=== PATIENT | female | born 1950 | race Caucasian/White ===

== ENCOUNTER → 2016-07-09 | Outpatient (REF) | payer MEDICARE, MEDICAID ==
[2016-07-09 14:15] LABS: BASO % 0.7 % (0.0-1.0); EOS # 0.2 K/mm3 (0.0-0.50); EOS % 4.4 % (0.0-3.0); LARGE UNSTAINED CELL # 0.1 K/mm3 (0.0-0.4); LARGE UNSTAINED CELL % 2.7 % (0.0-4.0); LYMPH # 1.8 K/mm3 (1.5-4.5); LYMPH % 40.1 % (24.0-44.0); MEAN CORPUSCULAR HEMOGLOBIN 30.2 pg (27.0-33.0); MEAN CORPUSCULAR HGB CONC 32.8 g/dl (32.0-36.5); MEAN CORPUSCULAR VOLUME 92.1 fl (80.0-96.0); MONO # 0.3 K/mm3 (0.0-0.8); MONO % 7.8 % (0.0-5.0); NEUTROPHILS % 44.4 % (36.0-66.0); PLATELET COUNT, AUTOMATED 232 k/mm3 (150-450); RED CELL DISTRIBUTION WIDTH 11.9 % (11.5-14.5); WHITE BLOOD COUNT 4.4 K/mm3 (4.0-10.0)
[2016-07-09 14:37] LABS: ALBUMIN/GLOBULIN RATIO 1.29 (1.00-1.93); BILIRUBIN,TOTAL 0.4 MG/DL (0.2-1.0); CALCIUM LEVEL 9.9 MG/DL (8.8-10.2); CREATININE FOR GFR 1.64 MG/DL (0.55-1.02); GLOMERULAR FILTRATION RATE 33.4 (>45); POTASSIUM SERUM 4.5 MEQ/L (3.5-5.1); TOTAL PROTEIN 7.1 GM/DL (6.4-8.2)
[2016-07-09 15:26] LABS: THYROID PEROXIDASE ANTIBODY 366.4 U/ML (<60.0)
[2016-07-09 15:52] LABS: THYROXINE (T4) 8.3 UG/DL (4.5-12.0)
== END ==
LOC: M SFHCPLAZ 11:13
PROVIDERS: ATTEND Nurse Practitioner Family
DX: I10 Essential (primary) hypertension (principal); E78.5 Hyperlipidemia, unspecified

== ENCOUNTER → 2016-09-02 | Outpatient (CLI) | payer MEDICARE, MEDICAID ==
[2016-09-02 18:28] LABS: FREE T4 0.99 NG/DL (0.76-1.46)
== END ==
LOC: M WUC 10:52
PROVIDERS: ATTEND Nurse Practitioner Family
DX: E03.9 Hypothyroidism, unspecified (principal)

== ENCOUNTER → 2016-12-10 | Outpatient (CLI) | payer MEDICARE, MEDICAID ==
--- NOTE | 2016-12-10 22:55 | REP ---
Clinical: Bilateral shoulder pain. Technique: Internal rotation, external rotation, and Y view of the right and left shoulder. Findings: Bilateral moderate arthritic degenerative changes are appreciated (left greater than right). Both shoulders demonstrate cortical irregularity and subtle spurring at the acromioclavicular joint along with blunting and subtle heterogeneity to the glenoid rim. Left shoulder demonstrates inferior osteophyte at the glenoid. No acute fracture dislocation. Subacromial space normal bilaterally. Impression: Bilateral moderate arthritic degenerative changes (left greater than right). Signed by Phillip Mcgovern MD 12/10/2016 10:46 P
== END ==
LOC: M RAD 18:26
PROVIDERS: ATTEND Physician Assistant
DX: M19.011 Primary osteoarthritis, right shoulder (principal); M19.012 Primary osteoarthritis, left shoulder
CPT/HCPCS: 73030; G0463

== ENCOUNTER → 2017-01-11 | Outpatient (CLI) | payer MEDICARE, MEDICAID | LOC: M RAD 13:12 | PROVIDERS: ATTEND Nurse Practitioner Family | DX: M25.512 Pain in left shoulder (principal) ==

== ENCOUNTER → 2017-04-03 | Outpatient (CLI) | payer MEDICARE, MEDICAID ==
[~2017-04-03] MED LIST: BENA25CA4 PO; CENTTAB47 PO; DILT90TA PO; ELIQ5TAB PO; ESTR62CR PV; EZET10TA PO; FENO160T10 PO; HAIR1CAP2 PO; LEVO25TA5 PO; METO1TAB33 PO; NYST10CR TOP; NYSTOI TOP; POTA20TA6 PO; SPIR25TA2 PO; TRAM50TA2 PO; VALA1TAB2 PO; VALT1TAB PO; VITA10005 PO; VITA500T PO; VITMTA PO
--- NOTE | 2017-04-03 13:29 | REP ---
TWO VIEW CHEST: Comparison is 09/26/2015. There is no evidence of acute infiltrate. No pleural effusion is seen. The heart is normal in size. The mediastinal silhouette is unremarkable. The visualized osseous structures are intact. There is calcification of the thoracic aorta. There are degenerative changes of the spine. IMPRESSION: No acute pulmonary disease. Signed by Lamine Young MD 04/04/2017 07:22 P
== END ==
LOC: M RAD 11:59
PROVIDERS: ATTEND Physician Assistant
DX: Z01.812 Encounter for preprocedural laboratory examination (principal); S46.012D Strain of muscle(s) and tendon(s) of the rotator cuff of left shoulder, subsequent encounter; X58.XXXD Exposure to other specified factors, subsequent encounter
CPT/HCPCS: 71020; G0463

== ENCOUNTER → 2017-04-10 | Outpatient (REF) | payer MEDICARE ==
[~2017-04-10] MED LIST changes: -ESTR62CR PV; -NYST10CR TOP; -NYSTOI TOP; -TRAM50TA2 PO; -VITMTA PO
[2017-04-10 16:26] LABS: CALCIUM LEVEL 9.8 MG/DL (8.8-10.2); CREATININE FOR GFR 1.75 MG/DL (0.55-1.02); POTASSIUM SERUM 4.3 MEQ/L (3.5-5.1)
== END ==
LOC: M LABDRAWP 15:32
PROVIDERS: ATTEND Physician Assistant
DX: Z01.812 Encounter for preprocedural laboratory examination (principal); S46.012D Strain of muscle(s) and tendon(s) of the rotator cuff of left shoulder, subsequent encounter; X58.XXXD Exposure to other specified factors, subsequent encounter; Y93.9 Activity, unspecified; Y92.9 Unspecified place or not applicable; Y99.8 Other external cause status

== ENCOUNTER 2017-04-23 05:44 | Day surgery (SDC) | payer MEDICARE, MEDICAID ==
[~2017-04-23] VITALS: Ht 160 cm; Wt 95.3 kg
[2017-04-23] MEDS ORDERED: ROPIvacaine 0.5% 30 ML INJECTION (J2795) ONE (05:45)
[2017-04-23] MEDS ORDERED: LR 1,000 ML IV SCH ×3 (06:00→11:45)
[2017-04-23 06:35] LABS: MEAN CORPUSCULAR HEMOGLOBIN 30.5 pg (27.0-33.0); MEAN CORPUSCULAR VOLUME 95.3 fl (80.0-96.0); PLATELET COUNT, AUTOMATED 248 10^3/uL (150-450); RED CELL DISTRIBUTION WIDTH 12.4 % (11.5-14.5); WHITE BLOOD COUNT 5.8 10^3/uL (4.0-10.0)
[2017-04-23] MEDS ORDERED: MIDAZOLAM INJ 2 MG/2 ML VIAL (J2250) As Ordered ONE ×2 (07:01→08:09)
[2017-04-23] MEDS ORDERED: fentaNYL 100 MCG/2 ML INJECTION (J3010) As Ordered ONE (07:01)
[2017-04-23] MEDS ORDERED: EPINEPHrine 1MG/ML INJ 30ML MD-VIAL As Ordered ONE (07:13)
[2017-04-23] MEDS ORDERED: LIDOCAINE 1% MDV 20ML VIAL As Ordered ONE (07:13)
[2017-04-23] MEDS: fentaNYL 100 MCG/2 ML INJECTION (J3010) IV PRN ×2 (07:15→07:19)
[2017-04-23] MEDS: MIDAZOLAM INJ 2 MG/2 ML VIAL (J2250) IV PRN ×2 (07:15→07:19)
[2017-04-23] MEDS ORDERED: fentaNYL 250 MCG/5 ML INJECTION (J3010) As Ordered ONE (08:09)
[2017-04-23] MEDS ORDERED: LIDOCAINE 2% INJ 100 MG/5 ML SDV (FOR ANES.) As Ordered ONE (08:10)
[2017-04-23] MEDS ORDERED: PROPOFOL 200 MG/20 ML VIAL As Ordered ONE (08:10)
[2017-04-23] MEDS ORDERED: PHENYLephrine HCL 500 MCG/5 ML (100MCG/ML) SYRINGE (J2370) As Ordered ONE (08:11)
[2017-04-23] MEDS ORDERED: METOCLOPRAMIDE INJ 10MG/2ML VIAL (J2765) As Ordered ONE (08:11)
[2017-04-23] MEDS ORDERED: ONDANSETRON 4MG/2ML VIAL (J2405) As Ordered ONE ×2 (08:11→11:33)
[2017-04-23] MEDS ORDERED: GLYCOPYRROLATE INJ 0.2 MG/ML 2 ML VIAL As Ordered ONE (08:11)
[2017-04-23] MEDS ORDERED: ROCURONIUM BROMIDE 50 MG/5 ML VIAL/SYRINGE As Ordered ONE (08:11)
[2017-04-23] MEDS ORDERED: NEOSTIGMINE 10 MG/10 ML VIAL (J2710) As Ordered ONE (08:11)
[2017-04-23] MEDS ORDERED: ePHEDrine SULFATE 25 MG/5 ML(5MG/ML) SYRINGE As Ordered ONE (08:16)
[2017-04-23] MEDS ORDERED: VASOPRESSIN INJ 20 UNITS/ML VIAL As Ordered ONE (08:25)
[2017-04-23] MEDS ORDERED: KETOROLAC 60 MG/2 ML VIAL (J1885) As Ordered ONE (10:37)
[2017-04-23] MEDS ORDERED: PERCOCET 5MG/325MG TAB As Ordered ONE (11:33)
[2017-04-23] MEDS ORDERED: PERCOCET 5MG/325MG TAB PO PRN (11:45)
[2017-04-23] MEDS ORDERED: ONDANSETRON 4MG/2ML VIAL (J2405) IV PRN (11:45)
[2017-04-23] MEDS ORDERED: MEPERIDINE INJ 25 MG/ML VIAL (J2175) IV PRN (11:45)
[2017-04-23] MEDS ORDERED: fentaNYL 100 MCG/2 ML INJECTION (J3010) IV PRN (11:45)
[2017-04-23] MEDS ORDERED: METOCLOPRAMIDE INJ 10MG/2ML VIAL (J2765) IV PRN (11:45)
[2017-04-23 14:15] VITALS: BP 176/91
[2017-04-23] MEDS ORDERED: ESTR62CR PV (23:48)
[2017-04-23] MEDS ORDERED: NYST10CR TOP (23:48)
[2017-04-23] MEDS ORDERED: VITMTA PO (23:48)
[2017-04-23] MEDS ORDERED: TRAM50TA2 PO (23:48)
[2017-04-23] MEDS ORDERED: NYSTOI TOP (23:48)
--- NOTE | 2017-05-01 00:20 | RO ---
DATE OF PROCEDURE: 04/23/2017 PREPROCEDURE DIAGNOSES: 1. Left shoulder full thickness rotator cuff tear. 2. Left shoulder acromioclavicular joint arthritis. 3. Left shoulder long head biceps tendon subluxation. 4. Left shoulder arthritis. POSTPROCEDURE DIAGNOSES: 1. Left shoulder full thickness rotator cuff tear. 2. Left shoulder acromioclavicular joint arthritis. 3. Left shoulder degenerative labral tearing. 4. Left shoulder impingement. 5. Left shoulder osteoarthritis. PROCEDURE: 1. Left shoulder arthroscopy, arthroscopic rotator cuff repair. 2. Left shoulder arthroscopic distal clavicle excision. 3. Left shoulder extensive debridement including subacromial decompression, chondroplasty and labral debridement. SURGEON: Dr. oJnatan Leigh BANKING SUPERVISOR: PANFILO Chin ANESTHESIA: General with a preoperative nerve block. IV FLUID: Lactated Ringer's. ESTIMATED BLOOD LOSS: 25 mL. IMPLANTS: Arthrex 4.75 mm SwiveLock anchor times one and 5.5 mm SwiveLock times one. CLOSURE: Nylon. COMPLICATIONS: None. INDICATIONS: Helen is a 66-year-old female with multiple medical problems who sustained an injury to her left shoulder. She had severely decreased active range of motion but preserved passive range of motion. She had pain and had failed nonoperative treatment. MRI revealed a full thickness tear in the supraspinatus. She also had weakness in her subscapularis and tenderness at her acromioclavicular (AC) joint. Given her failure to respond to nonoperative management, we discussed further nonoperative management or surgery. Surgical options discussed, including arthroscopic rotator cuff repair versus debridement and distal clavicle excision and subacromial decompression, and biceps tenotomy. We discussed the details of surgery, recovery and postoperative restrictions and expectations. She understood that the risks included but were not limited to bleeding, infection, damage to an adjacent neurovascular structure, deep vein thrombosis (DVT)/pulmonary embolism (PE), stiffness, re-tear, arthritis, failure of repair, failure to alleviate pain, recurrence of symptoms, risk of anesthesia and failure to return to desired activity level, and need for additional surgery. Written informed consent was obtained. DESCRIPTION OF PROCEDURE: The patient was identified in the preoperative holding area, and the left arm was initialed by myself. She received a nerve block by anesthesia. She was then brought to the operating room and placed supine on the operating room (OR) table with a beanbag. General anesthesia induced. In the supine position on the beanbag, examination under anesthesia revealed 170 degrees of passive forward flexion and 80 degrees of external rotation with the arm at her side. She had 90 degrees of external rotation with her arm at 90 and no increased anterior or posterior translation. She was then placed into the right side down lateral decubitus position with an axillary roll and the beanbag was deflated, and she was secured to the OR table. All bony prominences were well padded, including the down leg to protect the peroneal nerve. She had Venodyne boots bilateral lower extremities for DVT prophylaxis. She received appropriate IV antibiotics within 1 hour of incision. The left arm was then prepped and draped in the normal sterile fashion with Chloraprep. The left arm was placed into the lateral decubitus trapeze, the Arthrex STaR Sleeve and hooked up to 10 pounds of traction. Prior to incision, a time-out was performed in which myself and all OR staff confirmed the patient's name, medical record number, date of and the correct side, site and procedure. Bony landmarks were marked out with a marking pen. The joint was insufflated with 20 mL of lactated Ringer's with a spinal needle. Standard posterior viewing portal made with an #11 blade and 30-degree arthroscope introduced into the joint atraumatically. Diagnostic arthroscopy revealed grade 2 chondromalacia of the humeral head with osteophyte anteriorly. There was fraying of the cartilage in the humeral head and glenoid but no significant degenerative change. There was an obvious full-thickness tear in the far anterior portion of the supraspinatus with partial thickness tearing of the posterior supraspinatus. The infraspinatus and terres minor appeared intact. There was obvious tearing of the upper border of the subscapularis. The long head of the biceps tendon was not visualized. There was a thickened middle glenohumeral ligament drift over the subscapularis, consistent with a [place] complex variant. A standard anterior working portal was localized with a spinal needle through the rotator interval. Incision made with #11 blade, and a switching stick was used to easily enter through the rotator interval. A purple Arthrex cannula was brought in over the switching stick. On probing of the subscapularis, this was clearly torn and retracted. The soft tissue grasper was used to grasp the upper border of the tendon and reduce it to the lesser tuberosity, again confirming that this needed repair. Probing of the superior labrum and middle glenohumeral ligament again confirmed this was a [place] complex, and this was not the long head of the biceps tendon. Determined that the long head of the biceps had since torn and retracted out of the joint. There was diffuse degenerative tearing of the labrum. No loose bodies. The shaver was brought in through the anterior portal, and I performed a chondroplasty of the humeral head and debridement of the labrum to a stable rim. I debrided the frayed undersurface of the rotator cuff to remove devitalized tissue. The lesser tuberosity was then debrided with the shaver, first on the oscillate, then on the bur setting. I did remove 5 mm of articular cartilage at the lesser tuberosity to slightly medialize the insertion and take tension off the repair. An accessory superolateral portal was localized with a spinal needle and then switching stick brought in and a second cannula brought in through that portal. The soft tissue grasper was used to grasp and reduce the subscapularis to determine the appropriate point for the anchor. The Scorpion FastPass was used to pass a FiberTape suture through the upper third of the subscapularis. Sutures were then retrieved out the anterior working portal. The cannula was used to reduce the sutures to the lesser tuberosity to determine again the appropriate anchor site. The appropriate punch was used to create a socket in the lesser tuberosity just at the articular surface. The sutures were loaded through the 4.75 mm Arthrex PEEK SwiveLock and that was seated. Sutures were tensioned to reduce the tendon to bone and then anchor was advanced by hand with excellent fixation. Eyelet sutures were toggled, and there was no movement of the anchor. Those sutures were removed and then the FiberTape sutures trimmed with the arthroscopic excelsior cutter. I then probed the subscapularis, which confirmed a tight repair. The arthroscope was then placed in the subacromial space, and a bursectomy performed with both the radiofrequency wand and the shaver. Acromioplasty was performed of the anterior acromion with the bur. Spur was small to moderate in size but was felt to block instrumentation for supraspinatus repair. There was a full thickness tear of the anterior supraspinatus with high-grade partial thickness tearing of the bursal fibers in the more posterior supraspinatus. Extensive bursitis was carefully debrided. There was bursal-sided fraying of the entire intact supra- and infraspinatus. I determined that a single anchor, a SpeedFix-type configuration would be adequate for this size tear to not need a double-row technique. The lateral working portal had already been established. The vufind FastPass Suture Passer was used to place a limb of FiberTape in the far anterior and posterior portions of the tear in a horizontal mattress fashion and retrieved off the anterior cannula. A FiberLink suture was placed between the limbs of the FiberTape and then in the far posterior portion of the tear to avoid dog ear. All four sutures were retrieved out the lateral portal and that was the cannula used to reduce the rotator cuff and determine the appropriate position for lateral anchor fixation. A 5.5 Arthrex SwiveLock anchor was opened and the sutures loaded through that. The appropriate punch used to create a socket in the lateral greater tuberosity, and the anchor was then docked. Sutures were tensioned by hand to reduce but not over reduce the rotator cuff. [place] was advanced by hand with good fixation. Eyelet suture was tensioned, and there was no movement of the anchor. Sutures were then trimmed and discarded. The shoulder was gently rotated, and the rotator cuff moved nicely as a unit with no lift off. We then proceeded with arthroscopic distal clavicle excision. Cautery was used to clear out soft tissue in the AC joint. A bur was used through the anterior portal to remove approximately 7-8 mm of the distal clavicle and 1-2 mm on the acromial side. The scope was intermittently placed through the anterior portal for direct visualization of the AC joint to ensure complete removal of the distal clavicle and to avoid leaving posterior-superior bone. The shoulder was then irrigated and drained. Portals were closed with #3-0 nylon suture. A bulky sterile bandage was applied. All counts were correct times two. The patient was carefully positioned into the ARC 2 shoulder immobilizer. She was transferred to her hospital bed and extubated. DISPOSITION: The patient will be strict non-weightbearing on the left upper extremity with her sling on at all times including sleep. Her anticoagulation was coordinated with her primary care physician to resume that. Followup in 10 days for suture removal.
== END 2017-04-23 14:15 | disposition home or self-care (01) ==
LOC: M SDC 05:44
PROVIDERS: ATTEND Orthopaedic Surgery
DX: S46.012D Strain of muscle(s) and tendon(s) of the rotator cuff of left shoulder, subsequent encounter (principal); S46.122D Laceration of muscle, fascia and tendon of long head of biceps, left arm, subsequent encounter; I48.0 Paroxysmal atrial fibrillation; I13.0 Hypertensive heart and chronic kidney disease with heart failure and stage 1 through stage 4 chronic kidney disease, or unspecified chronic kidney disease; I50.30 Unspecified diastolic (congestive) heart failure; N18.3 Chronic kidney disease, stage 3 (moderate); E78.5 Hyperlipidemia, unspecified; E03.9 Hypothyroidism, unspecified; Z79.02 Long term (current) use of antithrombotics/antiplatelets; Z88.8 Allergy status to other drugs, medicaments and biological substances; E66.9 Obesity, unspecified; R07.9 Chest pain, unspecified

== ENCOUNTER → 2017-05-02 | Outpatient (CLI) | payer MEDICARE, MEDICAID ==
[~2017-05-02] MED LIST changes: +ESTR62CR PV; +NYST10CR TOP; +NYSTOI TOP; +TRAM50TA2 PO; +VITMTA PO
--- NOTE | 2017-05-02 11:10 | REP ---
Clinical: Status post procedure. Evaluate for pneumothorax. Comparison: 09/26/2015. Technique: PA and lateral. Findings: Small amount of subcutaneous emphysema is identified along the left lateral chest wall. There is no evidence for pneumothorax. Lung mata are well-aerated and clear. Mediastinum and cardiac silhouette are normal / stable. Skeletal structures demonstrate age-related changes to the thoracic spine and shoulders. Impression: 1. Small amount of subcutaneous emphysema likely related to procedure. No evidence for pneumothorax. Signed by Phillip Mcgovern MD 05/02/2017 11:02 A
== END ==
LOC: M SMT 10:41
PROVIDERS: ATTEND Thoracic Surgery (Cardiothoracic Vascular Surgery)
DX: J95.811 Postprocedural pneumothorax (principal)

== ENCOUNTER → 2017-07-04 | Outpatient (REF) | payer MEDICARE, MEDICAID ==
[2017-07-04 15:59] LABS: TOTAL 25(OH) VITAMIN D 15.9 NG/ML (30.0-100.0)
== END ==
LOC: M SFHCPLAZ 13:36
DX: E55.9 Vitamin D deficiency, unspecified (principal)
CPT/HCPCS: 82306

== ENCOUNTER → 2017-09-02 | Outpatient (REF) | payer MEDICARE | LOC: M SFHCPLAZ 11:05 | DX: I10 Essential (primary) hypertension (principal); E03.9 Hypothyroidism, unspecified; E78.5 Hyperlipidemia, unspecified; E55.9 Vitamin D deficiency, unspecified ==

== ENCOUNTER → 2017-09-09 | Outpatient (REF) | payer MEDICARE ==
[2017-09-09 16:56] LABS: FREE T4 0.91 NG/DL (0.76-1.46)
== END ==
LOC: M SFHCPLAZ 14:41
DX: E03.9 Hypothyroidism, unspecified (principal)
CPT/HCPCS: 84443

== ENCOUNTER → 2017-09-13 | Outpatient (REF) | payer MEDICARE ==
[2017-09-13 18:00] LABS: ALBUMIN 4.1 GM/DL (3.2-5.2); ALBUMIN/GLOBULIN RATIO 1.24 (1.00-1.93); ALKALINE PHOSPHATASE 53 U/L (45-117); ALT/SGPT 31 U/L (12-78); ANION GAP 9 MEQ/L (8-16); AST/SGOT 25 U/L (7-37); BILIRUBIN,TOTAL 0.3 MG/DL (0.2-1.0); BLOOD UREA NITROGEN 20 MG/DL (7-18); CALCIUM LEVEL 10.1 MG/DL (8.8-10.2); CARBON DIOXIDE LEVEL 24 MEQ/L (21-32); CHLORIDE LEVEL 109 MEQ/L (98-107); CHOLESTEROL LEVEL 266 MG/DL (<200); CREATININE FOR GFR 1.37 MG/DL (0.55-1.30); GLOMERULAR FILTRATION RATE 40.9 (>45); GLUCOSE, FASTING 84 MG/DL (70-100); HDL CHOLESTEROL 50 MG/DL (>40); NON-HDL-C 216 MG/DL; POTASSIUM SERUM 4.3 MEQ/L (3.5-5.1); SODIUM LEVEL 142 MEQ/L (136-145); TOTAL PROTEIN 7.4 GM/DL (6.4-8.2); TRIGLYCERIDES LEVEL 180 MG/DL (<150)
== END ==
LOC: M SFHCPLAZ 17:21
DX: E55.9 Vitamin D deficiency, unspecified (principal); E78.5 Hyperlipidemia, unspecified; I10 Essential (primary) hypertension
CPT/HCPCS: 80053

== ENCOUNTER → 2017-09-25 | Outpatient (CLI) | payer MEDICARE, MEDICAID | LOC: M RAD 09:32 | DX: N18.9 Chronic kidney disease, unspecified (principal); N10 Acute pyelonephritis | CPT/HCPCS: 76775 ==

== ENCOUNTER → 2017-11-20 | Outpatient (CLI) | payer MEDICARE, MEDICAID | LOC: M WHC 12:55 | DX: Z12.31 Encounter for screening mammogram for malignant neoplasm of breast (principal) | CPT/HCPCS: 77067 ==

== ENCOUNTER → 2018-06-11 | Outpatient (REF) | payer MEDICARE, MEDICAID ==
[~2018-06-11] MED LIST changes: +SPIR-10 PO; -SPIR25TA2 PO
[2018-06-11 18:20] LABS: CHOLESTEROL RISK RATIO 6.764 (<5)
[2018-06-11 18:24] LABS: BACTERIA, URINE AUTO NEGATIVE (NEGATIVE); MUCUS, URINE SMALL (NEGATIVE); RBC, URINE AUTO 2 /HPF (0-3); SQUAMOUS EPITHELIAL CELL UR AU 14 /HPF (0-6); WBC, URINE AUTO 1 /HPF (0-3)
== END ==
LOC: M LAB REF 17:06
PROVIDERS: ATTEND Internal Medicine Nephrology
DX: N18.3 Chronic kidney disease, stage 3 (moderate) (principal)

== ENCOUNTER → 2018-08-27 | Outpatient (REF) | payer MEDICARE, MEDICAID ==
[2018-08-27 13:42] LABS: CHOLESTEROL RISK RATIO 6.55 (<5); THYROID STIMULATING HORMONE 4.2 uIU/ML (0.358-3.740); THYROID STIMULATING HORMONE 4.34 uIU/ML (0.358-3.740)
[2018-08-27 13:43] LABS: TOTAL 25(OH) VITAMIN D 19.1 NG/ML (30.0-100.0)
[2018-08-27 13:50] LABS: MALB URINE SIEMENS 55.8 MG/L; MAU/CREAT RATIO 14.9 MCG/MG (0.0-30.0)
== END ==
LOC: M SFHCPLAZ 10:57
PROVIDERS: ATTEND Family Medicine
DX: E78.5 Hyperlipidemia, unspecified (principal); E03.9 Hypothyroidism, unspecified; E55.9 Vitamin D deficiency, unspecified

== ENCOUNTER → 2018-11-07 | Outpatient (REF) | payer MEDICARE, MEDICAID ==
[~2018-11-07] MED LIST changes: -EZET10TA PO; +EZET10TA21 PO
== END ==
LOC: M SFHCPLAZ 11:22
PROVIDERS: ATTEND Family Medicine
DX: E03.9 Hypothyroidism, unspecified (principal)

== ENCOUNTER 2018-11-15 00:42 | Emergency (ER) | payer MEDICARE, MEDICAID ==
[~2018-11-15] VITALS: Ht 162.6 cm; Wt 98.6 kg
[2018-11-15 01:47] LABS: BILIRUBIN, URINE MANUAL NEGATIVE (NEGATIVE); GLUCOSE, URINE (UA) MANUAL NEGATIVE (NEGATIVE); KETONE, URINE MANUAL NEGATIVE (NEGATIVE); UROBILINOGEN, URINE MANUAL NORMAL (NORMAL)
[2018-11-15 01:48] LABS: RBC, URINE NONE SEEN /hpf (0-3); SQUAMOUS EPITHELIAL CELL URINE SMALL AMOUNT /hpf (SMALL AMT)
[2018-11-15 01:49] LABS: BACTERIA, URINE SMALL AMOUNT; HYALINE CAST, URINE 0-1 /lpf (0-1)
[2018-11-15 01:53] LABS: HEMATOCRIT 45.5 % (36.0-47.0); HEMOGLOBIN 14.7 g/dl (12.0-15.5); LYMPH % 41.2 % (24.0-44.0); MEAN CORPUSCULAR HEMOGLOBIN 30.6 pg (27.0-33.0); MEAN CORPUSCULAR HGB CONC 32.3 g/dl (32.0-36.5); MEAN CORPUSCULAR VOLUME 94.8 fl (80.0-96.0); NEUTROPHILS % 40.3 % (36.0-66.0); PLATELET COUNT, AUTOMATED 227 10^3/uL (150-450); WHITE BLOOD COUNT 5.6 10^3/uL (4.0-10.0)
[2018-11-15 02:06] LABS: AMYLASE 87 U/L (25-115); BLOOD UREA NITROGEN 35 MG/DL (7-18); CALCIUM LEVEL 9.9 MG/DL (8.8-10.2); CARBON DIOXIDE LEVEL 29 MEQ/L (21-32); CHLORIDE LEVEL 107 MEQ/L (98-107); CREATININE FOR GFR 1.62 MG/DL (0.55-1.30); GLOMERULAR FILTRATION RATE 33.6 (>45); GLUCOSE, FASTING 128 MG/DL (70-100); LIPASE 228 U/L (73-393); SODIUM LEVEL 142 MEQ/L (136-145)
[2018-11-15] MEDS: MORPHINE 4 MG/ML 1ML VIAL/SYRINGE (J2270) IV PRN ×2 (02:38→03:30)
[2018-11-15] MEDS ORDERED: ONDANSETRON 4MG/2ML VIAL (J2405) IV ONE (02:45)
[2018-11-15 02:52] LABS: ALBUMIN 4.1 GM/DL (3.2-5.2); ALT/SGPT 33 U/L (12-78); BILIRUBIN,DIRECT < 0.1 MG/DL (0.0-0.2); BILIRUBIN,TOTAL 0.3 MG/DL (0.2-1.0); TOTAL PROTEIN 7.4 GM/DL (6.4-8.2)
[2018-11-15] MEDS ORDERED: HYDROMORPHONE HCL 0.5 MG/ 0.5 ML SYRINGE (J1170 PER 1) IV PRN (04:30)
--- NOTE | 2018-11-15 04:38 | REPVR ---
EXAM: US Abdomen Limited, Right Upper Quadrant EXAM DATE/TIME: 11/15/2018 2:57 AM CLINICAL HISTORY: 68 years old, female; Abdominal pain; Flank; Right; Additional info: Ruq abd pain TECHNIQUE: Imaging protocol: Real-time ultrasound of the abdomen with image documentation. Examination was focused on the right upper quadrant. COMPARISON: RENAL US 09/25/2017 9:43 AM FINDINGS: Liver: Mild fatty infiltration of the liver. Gallbladder: Gallstones and sludge. Gallbladder wall thickening is normal measuring 2.2 mm. No sonographic [place]'s. Common bile duct: Normal measuring 5.9 mm.. No stones. No dilation. Pancreas: Pancreas is not visualized secondary to overlying bowel gas shadow. Right kidney: Right kidney is unremarkable measuring 11.5 cm. Intraperitoneal space: No free fluid. IMPRESSION: Gallstones and sludge. No sonographic evidence of acute cholecystitis. Pancreas is not seen secondary to overlying bowel gas shadow. Electronically signed by: Leny Mooney On 11/15/2018 04:37:20 AM
--- NOTE | 2018-11-15 04:50 | REPVR ---
EXAM: CT Abdomen and Pelvis Without Contrast EXAM DATE/TIME: 11/15/2018 2:32 AM CLINICAL HISTORY: 68 years old, female; Abdominal pain; Localized; Right upper quadrant (ruq); Additional info: Ruq abd pain TECHNIQUE: Imaging protocol: Axial computed tomography images of the abdomen and pelvis without contrast. Coronal and sagittal reformatted images were created and reviewed. Radiation optimization: All CT scans at this facility use at least one of these dose optimization techniques: automated exposure control; mA and/or kV adjustment per patient size (includes targeted exams where dose is matched to clinical indication); or iterative reconstruction. COMPARISON: CT ABD PELVIS W/O CONTRAST 10/20/2018 1:14 PM FINDINGS: Lungs: 3 mm nodule in the right middle lobe. Mild right base atelectasis. Followup is recommended. ABDOMEN: Liver: Subcentimeter low-attenuation area in the left lobe of the liver, too small to characterize. Gallbladder and bile ducts: Gallstones seen on the ultrasound are not visualized on the CT scan. No pericholecystic fluid. No ductal dilatation. Pancreas: Normal. No ductal dilation. Spleen: Normal. No splenomegaly. Adrenals: Nodule in the left adrenal gland measuring 10 x 9.3 mm. The right adrenal gland is unremarkable. Kidneys and ureters: Nonobstructing 3 mm stone in the interpolar region of the left kidney. Right kidney is unremarkable. Stomach and bowel: Diverticulosis without any CT evidence of diverticulitis. No bowel dilatation or obstruction. Appendix: Normal appendix. PELVIS: Bladder: Unremarkable as visualized. Reproductive: Status post hysterectomy. ABDOMEN and PELVIS: Intraperitoneal space: Normal. No free air. No significant fluid collection. Bones/joints: No acute fracture. No dislocation. Soft tissues: Unremarkable. Vasculature: Atherosclerosis of the aorta and its branches. Lymph nodes: Normal. No enlarged lymph nodes. IMPRESSION: Gallstones seen on the ultrasound are not visualized on the CT scan. No pericholecystic fluid. No ductal dilatation. Diverticulosis without definite CT evidence of diverticulitis. Left adrenal nodule. Nonobstructing 3 mm stone in the left kidney. Electronically signed by: Leny Mooney On 11/15/2018 04:49:58 AM
[2018-11-15] MEDS ORDERED: HYOS125TA PO (05:33)
[2018-11-15 05:43] VITALS: BP 168/82
[2018-11-15] MEDS ORDERED: OXYCODONE/APAP 5MG/325MG(BULK FOR ED) 1 TABLET PO ONE (05:45)
--- NOTE | 2018-11-17 12:18 | ED PDOC ---
Post-Departure Follow-Up mejia lucas faxed formal report of ct abd/p for fu Avelina Boss MD Nov 17, 2018 12:18
== END 2018-11-15 05:44 | disposition home or self-care (01) ==
LOC: M ED 00:42
DX: K80.70 Calculus of gallbladder and bile duct without cholecystitis without obstruction (principal); I12.9 Hypertensive chronic kidney disease with stage 1 through stage 4 chronic kidney disease, or unspecified chronic kidney disease; N18.9 Chronic kidney disease, unspecified; I48.91 Unspecified atrial fibrillation; E03.9 Hypothyroidism, unspecified; I25.10 Atherosclerotic heart disease of native coronary artery without angina pectoris; Z88.8 Allergy status to other drugs, medicaments and biological substances; Z79.899 Other long term (current) drug therapy; Z79.01 Long term (current) use of anticoagulants
CPT/HCPCS: 74176; 76705; 80048; 80076; 81000; 82150; 83690; 85025; 87086; 96374; 96375; 96376; 99284; J1170; J2270; J2405

== ENCOUNTER 2018-11-22 01:45 | Inpatient (IN) | payer MEDICARE, MEDICAID ==
[~2018-11-22] VITALS: Ht 160 cm; Wt 91.2 kg
[~2018-11-22 01:45] MED LIST changes: +HYOS125TA PO
[2018-11-22] MEDS ORDERED: LEVO75TA4 PO (01:56)
[2018-11-22] MEDS ORDERED: ONDANSETRON 4 MG ORAL DISINTEGRATING TAB (Q0162 PER 1MG) PO ONE (03:15)
[2018-11-22] MEDS ORDERED: MORPHINE 2 MG/ML 1ML SYRINGE (J2270) IV ONE ×2 (04:00→04:45)
[2018-11-22 04:12] LABS: BASO % 0.3 % (0.0-1.0); EOS # 0.1 10^3/uL (0.0-0.50); EOS % 1.9 % (0.0-3.0); HEMATOCRIT 45.3 % (36.0-47.0); LYMPH # 1.1 10^3/uL (1.5-4.5); LYMPH % 17.4 % (24.0-44.0); MEAN CORPUSCULAR HEMOGLOBIN 30.7 pg (27.0-33.0); MEAN CORPUSCULAR HGB CONC 33.1 g/dl (32.0-36.5); MEAN CORPUSCULAR VOLUME 92.8 fl (80.0-96.0); MONO # 0.5 10^3/uL (0.0-0.8); MONO % 7.6 % (0.0-5.0); NEUTROPHILS # 4.6 10^3/uL (1.8-7.7); NEUTROPHILS % 72.6 % (36.0-66.0); PLATELET COUNT, AUTOMATED 239 10^3/uL (150-450); RED BLOOD COUNT 4.88 10^6/uL (4.00-5.40); WHITE BLOOD COUNT 6.3 10^3/uL (4.0-10.0)
[2018-11-22 04:53] LABS: ALT/SGPT 30 U/L (12-78); BILIRUBIN,DIRECT < 0.1 MG/DL (0.0-0.2); BILIRUBIN,TOTAL 0.5 MG/DL (0.2-1.0); BLOOD UREA NITROGEN 28 MG/DL (7-18); CALCIUM LEVEL 9.3 MG/DL (8.8-10.2); CARBON DIOXIDE LEVEL 28 MEQ/L (21-32); CHLORIDE LEVEL 105 MEQ/L (98-107); CREATININE FOR GFR 1.46 MG/DL (0.55-1.30); GLOMERULAR FILTRATION RATE 37.9 (>45); GLUCOSE, FASTING 138 MG/DL (70-100); LIPASE 173 U/L (73-393); POTASSIUM SERUM 4.6 MEQ/L (3.5-5.1); SODIUM LEVEL 139 MEQ/L (136-145); TOTAL PROTEIN 7.8 GM/DL (6.4-8.2)
[2018-11-22] MEDS ORDERED: HYOS125TA PO (06:15)
[2018-11-22] MEDS ORDERED: NYST1POW9 TOP (06:15)
[2018-11-22] MEDS ORDERED: ACET-897 PO (06:15)
[2018-11-22] MEDS ORDERED: POTA10PO PO (06:15)
[2018-11-22] MEDS ORDERED: VITA500045 PO (06:15)
[2018-11-22] MEDS ORDERED: FENO48TA2 PO (06:15)
[2018-11-22] MEDS ORDERED: cloNIDine 0.1 MG TAB PO ONE (06:45)
--- NOTE | 2018-11-22 07:35 | REPVR ---
EXAM: US Abdomen Limited, Right Upper Quadrant EXAM DATE/TIME: 11/22/2018 4:31 AM CLINICAL HISTORY: 68 years old, female; Abdominal pain; Epigastric; Additional info: Biliary/gb eval TECHNIQUE: Imaging protocol: Real-time ultrasound of the abdomen with image documentation. Examination was focused on the right upper quadrant. COMPARISON: GALLBLADDER US 11/15/2018 2:48 AM FINDINGS: Liver: The liver is suboptimal visualized. No intrahepatic duct dilatation is identified. Gallbladder: There are shadowing stones within the gallbladder. No gallbladder wall thickening or pericholecystic fluid is identified. Common bile duct: The common bile duct has a normal caliber, measuring 3.5 mm. Pancreas: Evaluation of the pancreas is inadequate secondary to overlying bowel gas. Right kidney: The right kidney has a normal appearance, measuring 10.5 cm in length. No right hydronephrosis. IMPRESSION: Cholelithiasis. Electronically signed by: William Cloud On 11/22/2018 07:35:01 AM
[2018-11-22] MEDS ORDERED: NS 1,000 ML IV SCH (07:49)
[2018-11-22] MEDS ORDERED: MORPHINE 4 MG/ML 1ML VIAL/SYRINGE (J2270) IV ONE (08:00)
[2018-11-22] MEDS ORDERED: POTASSIUM CHL PWD 20 MEQ PACKET PO SCH (09:00)
[2018-11-22] MEDS ORDERED: MAALOX 30 ML SUSP *UDC PO PRN (09:15)
[2018-11-22] MEDS ORDERED: MOM 30ML SUSPENSION UDC PO PRN (09:15)
[2018-11-22] MEDS ORDERED: ACETAMINOPHEN TAB 650MG DOSE (2X325MG) PO PRN (09:15)
[2018-11-22] MEDS ORDERED: PERCOCET 5MG/325MG TAB PO PRN (09:45)
[2018-11-22] MEDS ORDERED: HYOSCYAMINE SULFATE 0.125 MG SUBL TABLET PO PRN (09:45)
[2018-11-22] MEDS ORDERED: METOPROLOL SUCC (TopROL XL) 100MG *XL* TAB PO ONE (10:00)
--- NOTE | 2018-11-22 10:25 | HPEPDOC ---
General Date of Admission Nov 22, 2018 at 09:01 Date of Service: Nov 22, 2018 Primary Care Physician: OLGA MCELROY MD Attending Physician: BETI FORD DO Chief Complaint The patient is a 68-year-old female admitted with a reason for visit of Intractable Abd Pain,Recurrent Biliary Colic. Source: Patient, Old records Exam Limitations: No limitations Timing/Duration: 24 hours Associated Symptoms: Chest Pain, Cough (non-productive), Chills, Loss of appetite, Nausea, Shortness of breath (associated with abdominal pain) History of Present Illness Ms. Gupta is a 68-year-old female who presents to [facility] Emergency Department with intractable abdominal pain. Patient states that she had fried rice for dinner last evening and developed a burning type right sided abdominal pain without associated bowel abnormalities. The pain radiates to her back without radiation into her groin or her shoulder. She rated that pain as 8/10 last evening, but with current medical management it is rated 2/10. She is not nauseated, but has been dry heaving. There are no abnormal urinary symptoms, such as blood in her urine or painful urination. She has associated chills, but no reported fever or night sweats. She finds it difficulty to catch her breath and feels short of breath secondary to abdominal pain. She has had poor oral intake as she is unsure what she should be eating. Food does not get stuck in her throat or chest. Current Emergency Department evaluation reveals elevated blood pressure. CBC is unremarkable. Renal function reveals a creatinine of 1.46. Unremarkable LFTs with a normal lipase. She says that she was actually evaluated in the Emergency Department last week on 11/15/2018 for abdominal pain with nausea. She was evaluated by her renal doctor and was told that she had "passed some stones." A gallbladder ultrasound gallstones and sludge without evidence of acute cholecystitis. A CT abdomen and pelvis also revealed gallstones, but no ductal dilitation and a 3mm non- obstructing left kidney stone. Hospitalist service was consulted and patient was admitted for further medical management. Home Medications Scheduled Apixaban (Eliquis) 5 Mg Tab, 5 MG PO BID, (Reported) Diltiazem HCl (Diltiazem HCl) 90 Mg Tab, 90 MG PO BID, (Reported) Diphenhydramine HCl (Benadryl) 25 Mg Cap, 25 MG PO BID, (Reported) ALLERGIES Ergocalciferol (Vitamin D2) (Vitamin D2) 50,000 Unit Capsule, 50,000 UNIT PO QWEEK, (Reported) WEDNESDAYS Ezetimibe (Ezetimibe) 10 Mg Tab, 10 MG PO DAILY, (Reported) Fenofibrate Nanocrystallized (Fenofibrate) 48 Mg Tablet, 48 MG PO DAILY, (Reported) Levothyroxine Sodium (Levothyroxine Sodium) 75 Mcg Tablet, 75 MCG PO DAILY, (R eported) Metoprolol Succinate (Metoprolol Succinate) 100 Mg Tab, 100 MG PO DAILY, (Reported) Nystatin (Nystatin Powder) 15 Gm Powder, 1 APLCT TOP BID, (Reported) UNDER STOMACH Potassium Chloride (Potassium Chloride Powder) 20 Meq Packet, 20 MEQ PO BID, (Reported) Spironolactone (Spironolactone) 25 Mg Tab, 25 MG PO DAILY, (Reported) Scheduled PRN Acetaminophen (Tylenol Extra Strength) 500 Mg Tablet, 1,000 MG PO Q4H PRN for PAIN, (Reported) Hyoscyamine Sulfate (Hyoscyamine Sulfate) 0.125 Mg Tab.subl, 0.125 MG PO Q4H PRN for ABDOMINAL PAIN, (Reported) Valacyclovir HCl (Valtrex) 1 Gm Tab, 1 GM PO Q8H PRN for COLD SORES, (Reported) Allergies Coded Allergies: loratadine (Verified Allergy, Severe, ANAPHYLAXIS, 11/15/18) pravastatin (Verified Allergy, Severe, THROAT CLOSES, 11/15/18) losartan (Verified Allergy, Unknown, 11/15/18) Xdxgvuo-Lmi-Sfn Reductase Inhibitor (Verified Adverse Reaction, Interm ediate, MYALGIA W/ATORVASTATIN,SIMVASTATIN, 11/15/18) citalopram (Verified Adverse Reaction, Intermediate, PUPILS DILATE, 11/15/18) lisinopril (Verified Adverse Reaction, Unknown, COUGH, 11/15/18) Past Medical History Medical History 1. Grade 1 diastolic dysfunction 2. History of left-sided pneumothorax 3. Hypothyroidism 4. HSV 5. Atrial fibrillation 6. DLP 7. DDD/scoliosis 8. History of BCC 9. MAGY, non-compliant 10. Right carpal tunnel syndrome Surgical History 1. T&A 2. Laparoscopic OOP 3. Partial hysterectomy 4. Carpal tunnel repair 5. Left shoulder arthroscopy with rotator cuff repair, distal clavicle excision, subacromial decompression, chondroplasty/labral debridement 6. Left anterior chest tube 7. Teeth removal x3 Family History Father: , 84, Alzheimer's Mother: , 93, renal failure Siblings - Sisters: x3, alive, HTN - Sister: x1, , Crohn's disease Social History * Smoker: Denies Alcohol: Denies Lives independently at home without the use of assist devices. Retired from caregiving. Originally from [place] [facility], but moved to [place] and moved back to the [facility] 6 years ago. Has two adult children - one daughter and one son, who are alive and healthy. Does not smoke, consume EtOH, or use illicit drugs. There are no pets in the home. A-FIB/CHADSVASC A-FIB History Current/History of A-Fib/PAF?: Yes Current PO Anticoag Therapy: Yes Age/Risk Factor Scoring CHADSVASC: CHADSVASC Response (Comments) Value Age Risk Factor Age 65-74 years old 1 Gender Risk Factor Female 1 Hx of CHF Yes 1 Hx of HTN Yes 1 Hx of Stroke/TIA/or VTE No 0 Hx of Diabetes No 0 Hx of Vascular Disease No 0 Total 4 Treatment Treatment ordered: Apixaban (currently on therapeutic Lovenox for possible surgery) Review of Systems Constitutional: Reports: Chills; Denies: Fever, Night Sweats, Weakness Eyes: Denies: Vision change ENT: Denies: Head Aches, Dysphagia, Sinus Congestion, Sore Throat Skin: Denies: Rash, Lesions Pulmonary: Reports: Dyspnea, Cough (non-productive) Cardiovascular: Denies: Chest Pain, Palpitations, Orthopnea, Paroxysmal Noc. Dyspnea, Edema, Lt Headedness Gastrointestinal: Reports: Abdominal Pain (right upper quadrant), Constipation; Denies: Nausea, Vomiting, Diarrhea, Melena, Hematochezia Genitourinary: Denies: Dysuria, Frequency, Incontinence, Hematuria, Retention Hematologic: Denies: Bruising, Bleeding Excessively Musculoskeletal: Reports: Back Pain; Denies: Neck Pain, Shoulder Pain, Joint Pain, Muscle Pain Neurological: Denies: Weakness, Numbness Physical Examination General Exam: Positive: Alert, Cooperative, No Acute Distress Eye Exam: Positive: Other Eye Symptoms (wearing dark glasses) ENT Exam: Positive: Atraumatic, Mucous membr. moist/pink, Pharynx Normal, Tongue Midline, Nares Patent; Negative: Pharyngeal Edema Neck Exam: Positive: Supple, +2 carotid pulse wo bruit; Negative: JVD, thyromegaly, Lymphadenopathy Chest Exam: Positive: Clear to auscultation, Normal air movement; Negative: Rales, Rhonchi, Wheezing, Diminished Heart Exam: Positive: Rate Normal, Regular Rhythm, Normal S1, Normal S2, Murmurs (grade II/ systolic murmur, appreciated most prominently over the second intercostal space on the right without radiation to carotids), Other (no irregularly irregulary heart rate or rhythm appreciated on auscultation) Abdomen Exam: Positive: Normal bowel sounds, Soft, Tenderness (right upper quadrant, minimally positive Birmingham's sign); Negative: Hepatospenomegaly, Mass, Hernia Extremity Exam: Positive: Normal pulses; Negative: Clubbing, Cyanosis, Edema, Tenderness, Swelling Skin Exam: Negative: Rash, Breakdown, Lesion Neuro Exam: Positive: Normal Speech, Cranial Nerves 3-12 NL Psych Exam: Positive: Oriented x 3 Other physical findings 1. Limited abdominal ultrasound - Cholelithiasis. Vital Signs Vital Signs Date Time Temp Pulse Resp B/P (MAP) Pulse Ox O2 Delivery O2 Flow Rate FiO2 11/22/18 08:44 15 11/22/18 08:42 97.1 66 171/86 (114) 94 11/22/18 08:04 2.0 11/22/18 06:48 Nasal Cannula Height (in): 63 Weight (kg): 90.91 BMI (kg): 35.5 Laboratory Data Labs 24H Laboratory Tests 2 11/22/18 04:01: Immature Granulocyte % (Auto) 0.2, White Blood Count 6.3, Red Blood Count 4.88, Hemoglobin 15.0, Hematocrit 45.3, Mean Corpuscular Volume 92.8, Mean Corpuscular Hemoglobin 30.7, Mean Corpuscular Hemoglobin Concent 33.1, Red Cell Distribution Width 12.6, Platelet Count 239, Neutrophils (%) (Auto) 72.6H, Lymphocytes (%) (Auto) 17.4L, Monocytes (%) (Auto) 7.6H, Eosinophils (%) (Auto) 1.9, Basophils (%) (Auto) 0.3, Neutrophils # (Auto) 4.6, Lymphocytes # (Auto) 1.1L, Monocytes # (Auto) 0.5, Eosinophils # (Auto) 0.1, Basophils # (Auto) 0.0, Nucleated Red Blood Cells % (auto) 0.0, Anion Gap 6L, Glomerular Filtration Rate 37.9L, Calciu m Level 9.3, Aspartate Amino Transf (AST/SGOT) 40H, Alanine Aminotransferase (ALT/SGPT) 30, Alkaline Phosphatase 66, Total Bilirubin 0.5, Direct Bilirubin < 0.1, Total Protein 7.8, Albumin 4.0, Albumin/Globulin Ratio 1.05, Lipase 173 CBC/BMP Laboratory Tests 11/22/18 04:01 Red Blood Count 4.88, Mean Corpuscular Volume 92.8, Mean Corpuscular Hemoglobin 30.7, Mean Corpuscular Hemoglobin Concent 33.1, Red Cell Distribution Width 12.6, Neutrophils (%) (Auto) 72.6 H, Lymphocytes (%) (Auto) 17.4 L, Monocytes (%) (Auto) 7.6 H, Eosinophils (%) (Auto) 1.9, Basophils (%) (Auto) 0.3, Neutrophils # (Auto) 4.6, Lymphocytes # (Auto) 1.1 L, Monocytes # (Auto) 0.5, Eosinophils # (Auto) 0.1, Basophils # (Auto) 0.0 Plan / VTE VTE Prophylaxis Ordered?: Yes (Lovenox 90mg SQ Q12H) Plan Plan 1. Intractable right upper quadrant abdominal pain 2/2 cholestasis S/P NS @ 150 mLs/hr Discussed with general surgery: monitor, pain control, management out- patient with general surgeon on Saturday (patient has appointment with Dr. Quick) No need for general surgery consultation at this time; could consider if patient clinical course worsens or if pain is not controlled Morphine 2mg Q2HP, Percocet 1-2 tabs PO Q6HP, Tylenol 650mg PO Q4HP Zofran 4mg ODT Q6HP C/W Levsin Clear liquid diet Monitor VS and labs Unremarkable LFTs Activity as tolerated Abdominal US: Cholelithiasis 2. HTN C/W Diltiazem, Metoprolol, Spironolactone 3. Atrial fibrillation Holding Eliquis C/W therapeutic Lovenox (if surgery is required) C/W Metoprolol 4. CKD, stage III Appears at baseline S/P NS @ 150 mLs/hr 5. Hypothyroidism C/W Levothyroxine 6. DLP C/W Fenofibrate 7. GERD C/W Mylanta 8. Constipation C/W MoM, Colace Disposition Admit: Med/Surg Anticipated hospitalization: 2 nights IVF: Discontinue Diet: Continue Current (clear liquid diet) Activity: Continue Current (activity as tolerated) Respiratory: Other Respiratory (oxygen therapy to maintain oxygentation > 92%) Diagnostics: Check Labs, Repeat Labs in AM Anticipated Discharge: Home ISHAN TERAN DO Nov 22, 2018 10:25 BETI FORD DO Nov 22, 2018 16:17
[2018-11-22 11:00] VITALS: BP 119/78
[2018-11-22] MEDS: ONDANSETRON 4 MG ORAL DISINTEGRATING TAB (Q0162 PER 1MG) PO PRN ×2 (11:16→23:14)
[2018-11-22] MEDS: PERCOCET 5MG/325MG TAB PO PRN ×3 (11:16→23:08)
[2018-11-22] MEDS: LEVOTHYROXINE 75MCG TABLET (0.075MG) PO SCH (12:29)
[2018-11-22] MEDS: NYSTATIN 100,000 UNITS/GM TOPICAL PWD 15 GM TOP SCH ×2 (12:55→20:57)
[2018-11-22] MEDS: ENOXAPARIN 100MG/1ML SYRINGE (J1650) SC SCH ×2 (12:55→23:07)
[2018-11-22] MEDS: DOCUSATE SODIUM 100 MG CAP PO SCH ×2 (12:55→20:58)
[2018-11-22] MEDS: FENOFIBRATE 48 MG TAB (TRICOR) PO SCH (12:55)
[2018-11-22] MEDS: SPIRONOLACTONE 25 MG TAB PO SCH (12:56)
[2018-11-22] MEDS: diphenhydrAMINE 25 MG CAP PO SCH ×2 (12:56→20:57)
[2018-11-22 16:00] VITALS: BP 133/68
[2018-11-22] MEDS ORDERED: SLF 3 ML SYR IV PRN (19:00)
[2018-11-22 20:00] VITALS: BP 165/79
[2018-11-22] MEDS: SLF 3 ML SYR IV SCH (20:58)
[2018-11-22] MEDS: MORPHINE 4 MG/ML 1ML VIAL/SYRINGE (J2270) IV PRN (22:17)
[2018-11-23 00:18] VITALS: BP 137/76
[2018-11-23] MEDS: LEVOTHYROXINE 75MCG TABLET (0.075MG) PO SCH (05:12)
[2018-11-23] MEDS: PERCOCET 5MG/325MG TAB PO PRN (05:13)
[2018-11-23] MEDS: SLF 3 ML SYR IV SCH (05:16)
[2018-11-23] MEDS: ONDANSETRON 4 MG ORAL DISINTEGRATING TAB (Q0162 PER 1MG) PO PRN (05:28)
[2018-11-23] MEDS: MORPHINE 4 MG/ML 1ML VIAL/SYRINGE (J2270) IV PRN (08:06)
[2018-11-23 08:15] VITALS: BP 170/90
[2018-11-23 08:18] VITALS: BP 170/90
[2018-11-23] MEDS: DOCUSATE SODIUM 100 MG CAP PO SCH (08:18)
[2018-11-23] MEDS: diphenhydrAMINE 25 MG CAP PO SCH (08:19)
[2018-11-23] MEDS: FENOFIBRATE 48 MG TAB (TRICOR) PO SCH (08:19)
[2018-11-23] MEDS: SPIRONOLACTONE 25 MG TAB PO SCH (08:19)
[2018-11-23] MEDS: NYSTATIN 100,000 UNITS/GM TOPICAL PWD 15 GM TOP SCH (08:19)
[2018-11-23 08:52] LABS: HEMATOCRIT 41.5 % (36.0-47.0); HEMOGLOBIN 13.5 g/dl (12.0-15.5); MEAN CORPUSCULAR HEMOGLOBIN 30.6 pg (27.0-33.0); MEAN CORPUSCULAR HGB CONC 32.5 g/dl (32.0-36.5); MEAN CORPUSCULAR VOLUME 94.1 fl (80.0-96.0); PLATELET COUNT, AUTOMATED 209 10^3/uL (150-450); RED BLOOD COUNT 4.41 10^6/uL (4.00-5.40); WHITE BLOOD COUNT 6.7 10^3/uL (4.0-10.0)
[2018-11-23] MEDS ORDERED: METOPROLOL SUCC (TopROL XL) 100MG *XL* TAB PO SCH (09:00)
[2018-11-23 09:19] LABS: ALBUMIN 3.6 GM/DL (3.2-5.2); BILIRUBIN,TOTAL 0.5 MG/DL (0.2-1.0); CALCIUM LEVEL 9.2 MG/DL (8.8-10.2); CREATININE FOR GFR 1.54 MG/DL (0.55-1.30); GLOMERULAR FILTRATION RATE 35.7 (>45); POTASSIUM SERUM 3.8 MEQ/L (3.5-5.1); TOTAL PROTEIN 7.3 GM/DL (6.4-8.2)
--- NOTE | 2018-11-23 10:31 | IPNPDOC ---
Text Note Date of Service The patient was seen on 11/23/18. NOTE S: pateint admitted with biliary colic. states no further vomiting. has nausea with smell of food. keeping liquids down. using morphine and oxycodone ATC. states abdomen pain better Patient had positive screening for depression/suicide during nursing intake. Patient states over past 30 days has been depressed and thoughts of suicide, especially with increased biliary colic pain and with of mother 2 months ago. O: VItals as below BP before morning metoprolol given HRRR LCTA no W/R/R Abdomen: soft NT ND NABS A/P: 1. Intractable right upper quadrant abdominal pain due to biliary colic Advance diet Has follow up saturday with Dr Quick- surgeon d/c IV and IV morphine Medically stable for discharge 2. HTN - continue Diltiazem, Metoprolol, Spironolactone 3. Atrial fibrillation d/c lovenox and start eliquis this AM. 4. CKD, stage III-baseline/stable 5. Hypothyroidism - continue Levothyroxine 7. Constipation - scheduled and prn bowel regimen 8. positive depression and suicide screening risk - consult Dr Holman , pyschiatry VS,Ced, I+O VS, Ced, I+O Laboratory Tests 11/23/18 07:36 Red Blood Count 4.41, Mean Corpuscular Volume 94.1, Mean Corpuscular Hemoglobin 30.6, Mean Corpuscular Hemoglobin Concent 32.5, Red Cell Distribution Width 12.6, Calcium Level 9.2, Aspartate Amino Transf (AST/SGOT) 16, Alanine Aminotransferase (ALT/SGPT) 18, Alkaline Phosphatase 58, Total Bilirubin 0.5, Total Protein 7.3, Albumin 3.6 Vital Signs Date Time Temp Pulse Resp B/P (MAP) Pulse Ox O2 Delivery O2 Flow Rate FiO2 11/23/18 08:19 18 11/23/18 08:18 68 170/90 11/23/18 08:15 98.6 95 11/23/18 04:07 2.5 11/22/18 06:48 Nasal Cannula I&O- Last 24 Hours up to 6 AM 11/23/18 05:59 Intake Total 1180 ml Output Total 400 ml Balance 780 ml BETI FORD DO Nov 23, 2018 10:31
[2018-11-23] MEDS ORDERED: APIXABAN 5 MG TAB (ELIQUIS) PO ONE (11:00)
[2018-11-23] MEDS ORDERED: ONDANSETRON 4 MG ORAL DISINTEGRATING TAB (Q0162 PER 1MG) PO SCH (12:00)
[2018-11-23 13:05] VITALS: BP 140/70
[2018-11-23] MEDS ORDERED: PERCOCET PO (14:36)
[2018-11-23] MEDS ORDERED: ONDA4TAB6 PO (14:36)
--- NOTE | 2018-11-23 14:47 | DS.PDOC ---
Discharge Summary General Date of Admission Nov 22, 2018 at 09:01 Date of Discharge 11/23/18 Primary Care Physician: OLGA MCELROY MD Attending Physician: BETI FORD DO Specialist/Consultants Involve: Barbie Lizarraga Discharge Summary PROCEDURES PERFORMED DURING STAY: none ADMITTING DIAGNOSES: 1, Intractable right upper quadrant abdominal pain 2/2 cholestasis 2. HTN 3. Atrial fibrillation 4. CKD, stage III 5. Hypothyroidism 6. DLP 7. GERD 8. Constipation DISCHARGE DIAGNOSES: 1. Intractable right upper quadrant abdominal pain due to biliary colic 2. HTN 3. Atrial fibrillation 4. CKD, stage III- 5. Hypothyroidism - 6 positive depression and suicide screening risk assessment COMPLICATIONS/CHIEF COMPLAINT: Intractable Abd Pain,Recurrent Biliary Colic. HISTORY OF PRESENT ILLNESS: 68-year-old female who presents to [facility] Emergency Department with intractable abdominal pain after eating fried rice. See H&P for details. Prior to admission, She had recent evaluation on 11/15/2018 for abdominal pain with nausea and gallbladder ultrasound gallstones and sludge without evidence of acute cholecystitis. A CT abdomen and pelvis also revealed gallstones, but no ductal dilitation and a 3mm non-obstructing left kidney stone. HOSPITAL COURSE: patient admitted, given IV and po pain medication with improvement of her abdomen pain. her labs remained stable and she was able to tolerate low fat diet prior to discharge without N/V. As part of routine nursing assessment, a suicide/depression risk assessment performed. Prior to discharge, patient was seen by Dr Holman and deemed not a suicide risk. She is being discharge in stable condition DISCHARGE MEDICATIONS: Please see below. ALLERGIES: Please see below. PHYSICAL EXAMINATION ON DISCHARGE: VITAL SIGNS: Please see below. HRRR LCTA no W/R/R Abdomen: soft NT ND NABS LABORATORY DATA: Please see below. ACTIVITY: as tolerated DIET: low fat DISCHARGE PLAN: discharge home DISCHARGE INSTRUCTIONS: follow up saturday with Dr Quick- surgeon low fat diet take ondasentron prior to each meal ]. DISCHARGE CONDITION: stable TIME SPENT ON DISCHARGE: 25 minutes Vital Signs/I&Os Vital Signs Date Time Temp Pulse Resp B/P (MAP) Pulse Ox O2 Delivery O2 Flow Rate FiO2 11/23/18 13:05 140/70 (93) 11/23/18 12:17 18 11/23/18 08:18 68 11/23/18 08:15 98.6 95 11/23/18 04:07 2.5 11/22/18 06:48 Nasal Cannula I&O- Last 24 Hours up to 6 AM 11/23/18 06:00 Intake Total 1180 ml Output Total 400 ml Balance 780 ml Laboratory Data Labs 24H Laboratory Tests 2 11/23/18 07:36: Nucleated Red Blood Cells % (auto) 0.0, Anion Gap 6L, Glomerular Filtration Rate 35.7L, Blood Urea Nitrogen 26H, Creatinine 1.54H, Sodium Level 138, Potassium Level 3.8, Chloride Level 105, Carbon Dioxide Level 27, Calcium Level 9.2, Aspartate Amino Transf (AST/SGOT) 16, Alanine Aminotransferase (ALT/SGPT) 18, Alkaline Phosphatase 58, Total Bilirubin 0.5, Total Protein 7.3, Albumin 3.6, Albumin/Globulin Ratio 0.97L CBC/BMP Laboratory Tests 11/23/18 07:36 Red Blood Count 4.41, Mean Corpuscular Volume 94.1, Mean Corpuscular Hemoglobin 30.6, Mean Corpuscular Hemoglobin Concent 32.5, Red Cell Distribution Width 12.6, Calcium Level 9.2, Aspartate Amino Transf (AST/SGOT) 16, Alanine Aminotransferase (ALT/SGPT) 18, Alkaline Phosphatase 58, Total Bilirubin 0.5, Total Protein 7.3, Albumin 3.6 Discharge Medications Scheduled Apixaban (Eliquis) 5 Mg Tab, 5 MG PO BID, (Reported) Diltiazem HCl (Diltiazem HCl) 90 Mg Tab, 90 MG PO BID, (Reported) Diphenhydramine HCl (Benadryl) 25 Mg Cap, 25 MG PO BID, (Reported) ALLERGIES Ergocalciferol (Vitamin D2) (Vitamin D2) 50,000 Unit Capsule, 50,000 UNIT PO QWEEK, (Reported) WEDNESDAYS Ezetimibe (Ezetimibe) 10 Mg Tab, 10 MG PO DAILY, (Reported) Fenofibrate Nanocrystallized (Fenofibrate) 48 Mg Tablet, 48 MG PO DAILY, (Reported) Levothyroxine Sodium (Levothyroxine Sodium) 75 Mcg Tablet, 75 MCG PO DAILY, (Reported) Metoprolol Succinate (Metoprolol Succinate) 100 Mg Tab, 100 MG PO DAILY, (Reported) Nystatin (Nystatin Powder) 15 Gm Powder, 1 APLCT TOP BID, (Reported) UNDER STOMACH Ondansetron (Ondansetron Odt) 4 Mg Tab.rapdis, 4 MG PO ACHS for Nausea/vomiting Potassium Chloride (Potassium Chloride Powder) 20 Meq Packet, 20 MEQ PO BID, (Reported) Spironolactone (Spironolactone) 25 Mg Tab, 25 MG PO DAILY, (Reported) Scheduled PRN Hyoscyamine Sulfate (Hyoscyamine Sulfate) 0.125 Mg Tab.subl, 0.125 MG PO Q4H PRN for ABDOMINAL PAIN, (Reported) Oxycodone/Acetaminophen (Oxycodone-Acetaminophen 5-325) 1 Each Tablet, 1 TAB PO Q4HP PRN for MILD/MODERATE PAIN (PS 1-7) Valacyclovir HCl (Valtrex) 1 Gm Tab, 1 GM PO Q8H PRN for COLD SORES, (Reported) Allergies Coded Allergies: loratadine (Verified Allergy, Severe, ANAPHYLAXIS, 11/15/18) pravastatin (Verified Allergy, Severe, THROAT CLOSES, 11/15/18) losartan (Verified Allergy, Unknown, 11/15/18) Wvilkrk-Rne-Rce Reductase Inhibitor (Verified Adverse Reaction, Intermedia te, MYALGIA W/ATORVASTATIN,SIMVASTATIN, 11/15/18) citalopram (Verified Adverse Reaction, Intermediate, PUPILS DILATE, 11/15/18) lisinopril (Verified Adverse Reaction, Unknown, COUGH, 11/15/18) BETI FORD DO Nov 23, 2018 14:47
[2018-11-23] MEDS ORDERED: APIXABAN 5 MG TAB (ELIQUIS) PO SCH (21:00)
== END 2018-11-23 14:55 | disposition home or self-care (01) | DRG 446 ==
LOC: M ED 01:45 → M ED INP 09:01 → M PED 10:50
PROVIDERS: ADMIT Family Medicine; ATTEND Family Medicine
DX: K83.1 Obstruction of bile duct (principal); K21.9 Gastro-esophageal reflux disease without esophagitis; E03.9 Hypothyroidism, unspecified; N18.3 Chronic kidney disease, stage 3 (moderate); I48.91 Unspecified atrial fibrillation; I12.9 Hypertensive chronic kidney disease with stage 1 through stage 4 chronic kidney disease, or unspecified chronic kidney disease; K59.00 Constipation, unspecified; F32.9 Major depressive disorder, single episode, unspecified; N20.0 Calculus of kidney; Z79.899 Other long term (current) drug therapy; Z88.8 Allergy status to other drugs, medicaments and biological substances; G47.33 Obstructive sleep apnea (adult) (pediatric); Z91.19 Patient's noncompliance with other medical treatment and regimen

== ENCOUNTER → 2018-12-08 | Outpatient (REF) | payer MEDICARE, MEDICAID ==
[~2018-12-08] MED LIST changes: +ACET-897 PO; +FENO48TA2 PO; +LEVO75TA4 PO; +NYST1POW9 TOP; +ONDA4TAB6 PO; +PERCOCET PO; +POTA10PO PO; +VITA500045 PO
[2018-12-08 13:29] LABS: CALCIUM LEVEL 10.3 MG/DL (8.8-10.2); CREATININE FOR GFR 2.18 MG/DL (0.55-1.30); GLOMERULAR FILTRATION RATE 23.9 (>45); POTASSIUM SERUM 4.9 MEQ/L (3.5-5.1)
== END ==
LOC: M SFHCPLAZ 11:48
PROVIDERS: ATTEND Family Medicine
DX: N18.3 Chronic kidney disease, stage 3 (moderate) (principal)
CPT/HCPCS: 36415; 80048; 93005; G0463

== ENCOUNTER → 2018-12-09 | Outpatient (REF) | payer MEDICARE, MEDICAID ==
[2018-12-09 16:52] LABS: CALCIUM LEVEL 9.5 MG/DL (8.8-10.2); CREATININE FOR GFR 1.69 MG/DL (0.55-1.30); FREE T4 1.27 NG/DL (0.76-1.46); POTASSIUM SERUM 5.3 MEQ/L (3.5-5.1); THYROID STIMULATING HORMONE 0.738 uIU/ML (0.358-3.740)
[2018-12-09 16:53] LABS: TOTAL 25(OH) VITAMIN D 34.5 NG/ML (30.0-100.0)
== END ==
LOC: M SFHCPLAZ 15:18
PROVIDERS: ATTEND Family Medicine
DX: E03.9 Hypothyroidism, unspecified (principal); N18.3 Chronic kidney disease, stage 3 (moderate); E55.9 Vitamin D deficiency, unspecified

== ENCOUNTER 2018-12-12 07:07 | Day surgery (SDC) | payer MEDICARE, MEDICAID ==
[~2018-12-12] VITALS: Ht 160 cm; Wt 93.4 kg
[~2018-12-12 07:07] MED LIST changes: +AMPICILLIN SOD/SULBACTAM SOD 3 GM in D5W MINI-BAG PLUS 100 ML IV ONE; +BUPIVACAINE HCL 0.25% 30 ML VIAL As Ordered ONE; +LIDOCAINE 1% SDV INJ 30 ML VIAL As Ordered ONE; +LR 1,000 ML IV ONE
[2018-12-12] MEDS ORDERED: dexameTHASONE 4 MG/ML 1ML VIAL (J1100) As Ordered ONE (08:38)
[2018-12-12] MEDS ORDERED: ROCURONIUM BROMIDE 50 MG/5 ML VIAL As Ordered ONE ×2 (08:38→11:58)
[2018-12-12] MEDS ORDERED: PROPOFOL 200 MG/20 ML VIAL As Ordered ONE (08:38)
[2018-12-12] MEDS ORDERED: ONDANSETRON 4MG/2ML VIAL (J2405) As Ordered ONE (08:38)
[2018-12-12] MEDS ORDERED: LIDOCAINE 2% INJ 100 MG/5 ML SDV (FOR ANES.) As Ordered ONE (08:38)
[2018-12-12] MEDS ORDERED: MIDAZOLAM INJ 2 MG/2 ML VIAL (J2250) As Ordered ONE (08:39)
[2018-12-12] MEDS ORDERED: fentaNYL 250 MCG/5 ML INJECTION (J3010) As Ordered ONE (08:39)
[2018-12-12] MEDS ORDERED: ePHEDrine SULFATE 25 MG/5 ML(5MG/ML) SYRINGE As Ordered ONE ×2 (10:41→14:20)
[2018-12-12] MEDS ORDERED: GLYCOPYRROLATE INJ 0.2 MG/ML 2 ML VIAL As Ordered ONE ×3 (10:43→14:20)
[2018-12-12] MEDS ORDERED: ACETAMINOPHEN 1000MG 100ML IV BTL (OFIRMEV) (J0131 PER 10MG) As Ordered ONE ×2 (11:18→14:38)
[2018-12-12] MEDS ORDERED: NEOSTIGMINE 10 MG/10 ML VIAL (J2710) As Ordered ONE ×2 (11:18→14:38)
[2018-12-12] MEDS ORDERED: METOPROLOL 5 MG/5 ML VIAL As Ordered ONE (11:38)
[2018-12-12] MEDS ORDERED: PERCOCET 5MG/325MG TAB PO PRN (13:45)
[2018-12-12] MEDS ORDERED: MEPERIDINE INJ 25 MG/ML VIAL (J2175) IV PRN (13:45)
[2018-12-12] MEDS ORDERED: ONDANSETRON 4MG/2ML VIAL (J2405) IV PRN ×2 (13:45)
[2018-12-12] MEDS ORDERED: LR 1,000 ML IV SCH (13:45)
[2018-12-12] MEDS ORDERED: NORCO, ANEXSIA 5/325MG TABLET (HYDROcodone/ACETAMINOPHEN) PO PRN ×2 (13:45)
[2018-12-12] MEDS ORDERED: KETOROLAC 30 MG/ML VIAL (J1885) IV PRN (13:45)
[2018-12-12] MEDS ORDERED: METOCLOPRAMIDE INJ 10MG/2ML VIAL (J2765) IV PRN (13:45)
[2018-12-12] MEDS: fentaNYL 100 MCG/2 ML INJECTION (J3010) IV PRN ×3 (13:54→14:22)
--- NOTE | 2018-12-12 14:08 | ROOPDOC ---
[facility] Report Of Operation Report of Operation DATE OF PROCEDURE: 12/12/18 PREPROCEDURE DIAGNOSES: Cholelithiasis, biliary colic. POSTPROCEDURE DIAGNOSES: And cholelithiasis, chronic cholecystitis. PROCEDURE: Laparoscopic cholecystectomy. SURGEON: Heron Quick MD ANESTHESIA: General anesthesia. ESTIMATED BLOOD LOSS: Approximately 40 mL. COMPLICATIONS: None. REMARKS: 68-year-old female had at least one documented episode of severe biliary colic attack or mild early acute cholecystitis when she presented to the emergency room with sudden onset of acute epigastric and right upper quadrant pain and subsequently found to have stones in her gallbladder.she was discharged home and referred to us for consideration for cholecystectomy. Patient is on Eliquis for atrial fibrillation and this was stopped 3 days ago. PROCEDURE NOTE: Distended gallbladder which is markedly thickened, difficult to maintained traction with the grasper, multiple stones within the lower body and neck of the gallbladder. Fibrotic scarring of the tissues surrounding the gallbladder including that of the peritoneum in the posterior wall into the liver bed. The cystic duct remained distended mildly enlarged. This was milked to bring up any stones within the duct. I made an anterior cystotomy at the infundibulum to further deliver, milk the stones from the cystic duct. This was clipped twice and a loop PDS was used to secure the cystic duct stump. DESCRIPTION OF PROCEDURE: She is brought to the OR for laparoscopic cholecystectomy. She has given a dose of Unasyn 3 g IV for prophylaxis. She placed supine on the table. General endotracheal anesthesia started. Her abdomen prepped and draped in usual sterile fashion. She had compression stockings for DVT prophylaxis. After surgical timeout we began our surgery. Entry into the abdomen done through an incision at the top of the umbilicus. A Veress needle inserted and intra-abdominal insufflation done to a pressure of 15 mmHg. Using the same incision a 5 mm Visiport was placed under direct vision laparoscope. She was then placed on the reverse Trendelenburg position, her right side tilted up about 30 to further expose the gallbladder. 3 working ports were placed in their usual position including 8 mm port at the epigastric area, and two 5 mm ports along the right subcostal line. The gallbladder was noted to be moderately distended. The gallbladder wall was moderately thick with the lumen of the gallbladder mostly filled with stones making it hard to grasp and maintained traction on the gallbladder fundus. There remains some mild acute-appearing inflammation to the gallbladder. Her liver has an enlarged, fatty replaced appearance though no nodularities or noted to signify cirrhosis. The left lobe of the liver is quite floppy and is covering most of the body of the gallbladder. Fundus of gallbladder was grasped and the gallbladder elevated superiorly to expose the infundibulum and neck to gallbladder. There remains some flimsy omental adhesions at the underside of the gallbladder which was easily lysed. This was also pulling the duodenum all ports and this was dissected free. The overall thickening of the gallbladder wall continues to the lower body and neck to gallbladder making also the lateral retraction of the neck of the gallbladder difficult. I couldn't make up the lymph node at the hepatocystic triangle as my initial landmark and this was quite enlarged. Underneath I could track the course of the cystic artery as it goes upwards and lateral. As I am having difficulty maintaining adequate visualization I placed another 5 mm port over the right lower quadrant area and used a liver retractor to retract the left lobe of the gallbladder away from view. Once adequate visualization was maintained I then started dissecting higher up at the medial border of the gallbladder to the liver freeing the thickened peritoneum overlying the medial (posterior) portion of the gallbladder starting at the mid body going down towards the lower body. Using [place] instrument the previously identified lymph node at the hepatocystic triangle was dissected circumferentially to expose the course of the cystic artery. To maintain adequate traction I also opened up the peritoneum overlying the lateral (anterior) wall of the gallbladder from the edge of the liver and lifting the gallbladder off from the cystic plate dissecting posteriorly. I then worked on connecting my lateral/anterior dissection to my medial/posterior dissection at the cystic plate. A 7 over the circumferentially dissected the cystic artery higher up I then proceeded getting around the neck of the gallbladder, the Beyer's pouch and the beginnings of the cystic duct. The cystic duct felt quite enlarged and fibrotic. I used the [place] instrument to milk the contents of the cystic duct back into the gallbladder. I continued my dissection but it is hard to get the critical view of safety perfectly. I have mostly dissected the cystic plate and posterior wall of the gallbladder likewise have identified the cystic artery higher up. I then clipped the cystic artery 4 times and divided this at the mid body and dissected this away from the body of the gallbladder laterally to further expose the neck of the gallbladder medially and posteriorly and this allowed me to fully circumferentially dissect the cystic duct. This remains enlarged despite me trying to skeletonize this. I placed 4 clips and divided this higher up and controlled the cystic duct stump (almost to the gallbladder neck) with a PDS Endoloop. I did not see any evidence of bile leakage. The rest of the gallbladder which was freed up already to the mid body was then dissected free of the liver plate. There was some bleeding at about the level of the fundus on the liver plate which was controlled with Bovie cautery. There was some spillage of small stones as well as small amount of bile as I dissected the gallbladder free. All visible stones were retrieved. We enlarged the epigastric port site to accommodate the 10 mm Endo Catch bag and the gallbladder was delivered into the bag and retrieved from the epigastric port site using.. On re-insufflation, we examined our surgical site. I cauterized the liver plate to make sure there is adequate hemostasis. The clips at the cystic duct and artery were noted to be well placed. A irrigated thoroughly at and around the liver plate in the dome of the liver until I had clear returns and also to make sure no leftover stones remain. The abdomen was then deflated, all ports removed. The fascial defect at the epigastric port site was closed with 0 Vicryl. All skin incisions closed with 4-0 Monocryl in subcuticular fashion Dermabond was used for wound coverage. Patient was then promptly awake and extubated and brought to the recovery room stable sponges and instruments verified to be correct . HERON QUICK MD Dec 12, 2018 14:08
--- NOTE | 2018-12-12 14:25 | REP ---
PORTABLE CHEST X-RAY: Single view. HISTORY: Postop. COMPARISON CHEST X-RAY: May 02, 2017. FINDINGS: EKG monitoring electrodes overlie the chest. There is mild linear plate-like atelectasis in the bilateral lower lobes and in the right upper lobe. No infiltrate is seen. No evidence of pneumothorax or hydrothorax is seen. Heart is not enlarged. IMPRESSION: Bilateral lower lobe and right upper lobe plate-like atelectasis. Otherwise negative. Electronically Signed by Omar Liriano MD 12/12/2018 08:14 P
[2018-12-12 15:55] VITALS: BP 131/73
== END 2018-12-12 16:05 | disposition home or self-care (01) ==
LOC: M SDC 07:07
PROVIDERS: ATTEND Surgery
DX: K80.10 Calculus of gallbladder with chronic cholecystitis without obstruction (principal); I48.91 Unspecified atrial fibrillation; E03.9 Hypothyroidism, unspecified; E78.00 Pure hypercholesterolemia, unspecified; I10 Essential (primary) hypertension; F41.9 Anxiety disorder, unspecified; G47.30 Sleep apnea, unspecified; N18.9 Chronic kidney disease, unspecified; Z88.8 Allergy status to other drugs, medicaments and biological substances; Z79.899 Other long term (current) drug therapy
CPT/HCPCS: 47562; 71045; 88304; J0131; J1100; J1885; J2250; J2405; J2710; J3010

== ENCOUNTER → 2018-12-18 | Outpatient (CLI) | payer MEDICARE, MEDICAID ==
[~2018-12-18] MED LIST changes: -AMPICILLIN SOD/SULBACTAM SOD 3 GM in D5W MINI-BAG PLUS 100 ML IV ONE; -BUPIVACAINE HCL 0.25% 30 ML VIAL As Ordered ONE; -LIDOCAINE 1% SDV INJ 30 ML VIAL As Ordered ONE; -LR 1,000 ML IV ONE
--- NOTE | 2018-12-18 18:23 | REP ---
CT chest without contrast: History: Lung nodule. Comparison chest CT study is from April 23, 2017. CT findings: Digital preliminary invertebrate paleontologist radiograph is unremarkable. There is fairly prominent coronary artery vascular calcification. There are clips in the gallbladder fossa. There is an accessory splenule in the left upper quadrant. No adrenal lesion is seen. The visualized upper abdominal structures are otherwise unremarkable. There is an area of subcutaneous fat streaking and overlying dermal thickening in the right upper quadrant which may be related to scarring from cholecystectomy. Indeed the cholecystectomy has taken place in the interval since the November 15, 2018 prior study. There is no evidence of hilar mass or mediastinal adenopathy. No pleural or pericardial effusion is appreciated. No pulmonary mass or nodule is seen. There is a nodular density posterior to the descending thoracic aorta in the paravertebral soft tissues. This measures 1.7 x 1.2 x 1.9 cm in dimension. This does not appear to be changed when compared with the April 23, [address] study[address] A stable lymph node or a small neuroma is a possibility. This indents the adjacent pleural surface of the left lower lobe, but it is not a pulmonary parenchymal nodule. Air is seen in an otherwise normal esophagus. No other abnormality. Impression: No pulmonary nodule is seen. There is a 19 mm posterior mediastinal/paravertebral nodular density which is felt to be unchanged from April 23, [address] study where it is visible in retrospect. A stable benign neurogenic nodule is the mostly likely etiology. Otherwise no acute disease. Electronically Signed by Omar Liriano MD 12/18/2018 07:27 P
== END ==
LOC: M RAD 13:37
PROVIDERS: ATTEND Family Medicine
DX: R91.1 Solitary pulmonary nodule (principal)

== ENCOUNTER → 2019-01-09 | Outpatient (REF) | payer MEDICARE, MEDICAID ==
[2019-01-09 15:53] LABS: HEMATOCRIT 43.2 % (36.0-47.0); HEMOGLOBIN 14.1 g/dl (12.0-15.5); MEAN CORPUSCULAR HEMOGLOBIN 30.2 pg (27.0-33.0); MEAN CORPUSCULAR HGB CONC 32.6 g/dl (32.0-36.5); MEAN CORPUSCULAR VOLUME 92.5 fl (80.0-96.0); PLATELET COUNT, AUTOMATED 267 10^3/uL (150-450); RED BLOOD COUNT 4.67 10^6/uL (4.00-5.40); WHITE BLOOD COUNT 5.8 10^3/uL (4.0-10.0)
[2019-01-09 16:11] LABS: CALCIUM LEVEL 9.3 MG/DL (8.8-10.2); CREATININE FOR GFR 1.61 MG/DL (0.55-1.30); GLOMERULAR FILTRATION RATE 33.9 (>45); POTASSIUM SERUM 4.7 MEQ/L (3.5-5.1)
== END ==
LOC: M SFHCPLAZ 14:52
PROVIDERS: ATTEND Family Medicine
DX: K62.5 Hemorrhage of anus and rectum (principal); E87.5 Hyperkalemia
CPT/HCPCS: 36415; 80048; 85027; G0463

== ENCOUNTER → 2019-01-28 | Outpatient (CLI) | payer MEDICARE, MEDICAID ==
--- NOTE | 2019-01-28 14:48 | REPMRS ---
Patient History The patient states she had a clinical breast exam in 11/2018. Family history of prostate cancer at age 50 or over in father. No Hormone Replacement Therapy Digital Woman Screen Mammo: January 28, 2019 - Exam #: [id number] Bilateral CC and MLO view(s) were taken. Technologist: Deb Cross, Technologist Prior study comparison: November 20, 2017, bilateral digital woman screen mammo performed at [facility]. December 22, 2015, digital woman screen mammo performed at [facility]. November 10, 2014, digital woman screen mammo performed at [facility]. FINDINGS: There are scattered fibroglandular densities. There has been no change in the appearance of the mammogram from the prior studies. There is a mild amount of scattered fibroglandular density which is fairly symmetric. There is no interval development of dominant mass, architectural distortion, or grouped microcalcification suggestive of malignancy. 3-D tomosynthesis shows no additional findings. Assessment: BI-RADS/ACR category 1 mammogram. Negative Mammogram. Recommendation Routine screening mammogram of both breasts in 1 year (for women over age 40). This patient's Lifetime Breast Cancer Risk is estimated at 6.5 %. This mammogram was interpreted with the aid of an FDA-approved computer-aided dectection system. Electronically Signed By: Arturo Liriano MD 01/28/19 [id number]
== END ==
LOC: M WHC 13:32
PROVIDERS: ATTEND Family Medicine
DX: Z12.31 Encounter for screening mammogram for malignant neoplasm of breast (principal)

== ENCOUNTER → 2019-02-27 | Outpatient (CLI) | payer MEDICARE, MEDICAID ==
--- NOTE | 2019-03-02 15:16 | REP ---
Chest x-ray: Two views. History: Cough. Comparison study: December 12, 2018. Findings: The lungs are symmetrically aerated and clear. Heart is not enlarged. The thoracic aorta is somewhat tortuous. There are degenerative changes in the thoracic spine. Pleural angles are sharp. Pulmonary vasculature is not increased. Impression: No acute disease. No infiltrate seen. Electronically Signed by Omar Liriano MD 03/02/2019 03:47 P
== END ==
LOC: M SMT 14:03
PROVIDERS: ATTEND Family Medicine
DX: R05 Cough (principal)

== ENCOUNTER → 2019-08-19 | Outpatient (REF) | payer MEDICARE, MEDICAID ==
[~2019-08-19] MED LIST changes: -FENO48TA2 PO; +FENO48TA7 PO; -VALA1TAB2 PO; +VALA1TAB5 PO
[2019-08-19 17:42] LABS: CALCIUM LEVEL 9.6 MG/DL (8.8-10.2); CREATININE FOR GFR 1.91 MG/DL (0.55-1.30); FREE T4 1.15 NG/DL (0.76-1.46); GLOMERULAR FILTRATION RATE 27.7 (>45); POTASSIUM SERUM 4.6 MEQ/L (3.5-5.1); THYROID STIMULATING HORMONE 3.99 uIU/ML (0.358-3.740)
[2019-08-19 17:44] LABS: TOTAL 25(OH) VITAMIN D 48.1 NG/ML (30.0-100.0)
== END ==
LOC: M SFHCPLAZ 12:17
PROVIDERS: ATTEND Family Medicine
DX: E03.9 Hypothyroidism, unspecified (principal); I12.9 Hypertensive chronic kidney disease with stage 1 through stage 4 chronic kidney disease, or unspecified chronic kidney disease; N18.3 Chronic kidney disease, stage 3 (moderate); E55.9 Vitamin D deficiency, unspecified
CPT/HCPCS: 80048; 82306; 84439; 84443; G0463

== ENCOUNTER → 2019-11-25 | Outpatient (REF) | payer MEDICARE, MEDICAID ==
[~2019-11-25] MED LIST changes: +VITA-243 PO; -VITA500T PO
[2019-11-25 14:17] LABS: FREE T4 1.19 NG/DL (0.76-1.46); THYROID STIMULATING HORMONE 1.45 uIU/ML (0.358-3.740)
== END ==
LOC: M PLALAB 12:05
PROVIDERS: ATTEND Family Medicine
DX: E03.9 Hypothyroidism, unspecified (principal)

== ENCOUNTER → 2020-02-19 | Outpatient (CLI) | payer MEDICARE, MEDICAID ==
[2020-02-19 18:26] LABS: CALCIUM LEVEL 9.4 MG/DL (8.8-10.2); CREATININE FOR GFR 1.47 MG/DL (0.55-1.30); GLOMERULAR FILTRATION RATE 37.5 (>45)
== END ==
LOC: M PLALAB 14:45
PROVIDERS: ATTEND Family Medicine
DX: N18.3 Chronic kidney disease, stage 3 (moderate) (principal)
CPT/HCPCS: 80048; G0463